=== PATIENT | male | born 1975 | race Caucasian/White ===

== ENCOUNTER → 2016-07-05 | Outpatient (CLI) | payer BC ==
[~2016-07-05] MED LIST: ALBUAER2 INH; AMOX875T PO; CYAN100020 PO; FISHOIL PO; Symbicort INH
--- NOTE | 2016-07-05 13:45 | DIAGNOSTIC IMAGING REPORT ---
TWO VIEW CHEST CLINICAL HISTORY: Asthma exacerbation. FINDINGS: PA and lateral chest radiographs are compared to study dated 09/30/2014. The cardiomediastinal silhouette is unremarkable. Findings suggest mild emphysema. Interstitial thickening is noted. No airspace consolidation or pleural effusion is identified. There is no pneumothorax. The bony thorax appears intact. IMPRESSION: Findings suggest mild emphysema. There is no airspace consolidation or pleural effusion. Electronically signed by: Felipe Choudhary M.D. 07/05/2016 1:44 PM Dictated Date/Time: 07/05/2016 1:41 PM
== END | disposition home or self-care (01) ==
LOC: C.RAD1850 13:34
PROVIDERS: ATTEND Internal Medicine Pulmonary Disease
DX: J45.901 Unspecified asthma with (acute) exacerbation (principal)

== ENCOUNTER 2017-08-25 21:07 | Observation (INO) | payer BC ==
[~2017-08-25] VITALS: Ht 177.8 cm; Wt 74.3 kg
[2017-08-25] MEDS ORDERED: ASPIRIN 324 MG CHEW PO STA (22:08)
[2017-08-25] MEDS ORDERED: NITROGLYCERIN 2% OINTMENT 30GM TUBE EXT ONE (22:15)
[2017-08-25] MEDS ORDERED: SODIUM CHLORIDE 0.9% 1000ML 1,000 ML IV ONE (22:15)
[2017-08-25 22:30] LABS: BASO % 0.3 %; BASO ABS # 0.02 K/uL (0-0.2); EOS % 5.4 %; EOS ABS # 0.31 K/uL (0-0.5); HEMATOCRIT 40.2 % (42-52); HEMOGLOBIN 14.3 g/dL (14.0-18.0); IG# 0.01 K/uL (0.00-0.02); LYMPH % 21.1 %; LYMPH ABS # 1.21 K/uL (1.2-3.4); MEAN CELL VOLUME 90.5 fL (80-100); MEAN CORPUSCULAR HEMOGLOBIN 32.2 pg (25-34); MEAN CORPUSCULAR HGB CONC 35.6 g/dl (32-36); MEAN PLATELET VOLUME 10.4 fL (7.4-10.4); MONO % 8.9 %; MONO ABS # 0.51 K/uL (0.11-0.59); NEUT % 64.1 %; NEUT ABS # 3.68 K/uL (1.4-6.5); PLATELET COUNT 216 K/uL (130-400); RED CELL DISTRIBUTION WIDTH CV 12.4 % (11.5-14.5); RED CELL DISTRIBUTION WIDTH SD 41.2 fL (36.4-46.3); WHITE BLOOD COUNT 5.74 K/uL (4.8-10.8)
[2017-08-25 22:36] LABS: PTT PATIENT 27.7 SECONDS (21.0-31.0)
[2017-08-25 22:42] LABS: ALBUMIN 3.9 gm/dl (3.4-5.0); CALCIUM 8.3 mg/dl (8.5-10.1); CREATININE 0.97 mg/dl (0.60-1.40); POTASSIUM 3.5 mmol/L (3.5-5.1)
[2017-08-25 22:52] LABS: CKMB 3.1 ng/ml (0.5-3.6); TOTAL PROTEIN 6.5 gm/dl (6.4-8.2)
[2017-08-25] MEDS ORDERED: MoRPHine SULFATE 4 MG/ML 1 ML CARP\\VIAL IV ONE (23:30)
[2017-08-25] MEDS ORDERED: SYMIN160 INH (23:40)
[2017-08-25] MEDS ORDERED: MULT-106 PO (23:41)
--- NOTE | 2017-08-25 23:44 | History and Physical ---
History & Physical Date & Time of Service: Aug 25, 2017 at 23:43 Chief Complaint: Numbness In Arm Primary Care Physician: Renato Park M.D. History of Present Illness Source: patient, hospital records 42 yo M w/ past medical history of Asthma, Non-hodgkins Lymphoma dx 2011, s/p chemotherapy last treatment 2011. He presents with Left sided chest pain radiating to arm neck. Symptoms occurred while doing yard work outside. 4-5/10 intensity Pain. He is no has previous similar symptoms. No aggravating factors. He also reports SOB, palpitation. No diaphoresis, nausea, fevers chills, abdominal pain, diarrhea. Reported symptoms to father and was driven to ED. NO similar previous symptoms. NO known injury. He denies wheezing sob, asthma related symptoms . NO history of HLD, HTN, Diabetes. His father had an ND at age 36. Past Medical/Surgical History Medical Problems: (1) Asthma (2) Asthma exacerbation (3) Asthmatic bronchitis (4) Follicular lymphoma (5) Pneumonia Family History Noncontributory Social History Smoking Status: Current Every Day Smoker Smokeless Tobacco Use: No Alcohol Use: none Drug Use: none Marital Status: Occupational Status: employed Immunizations History of Influenza Vaccine: No History of Tetanus Vaccine?: Yes History of Pneumococcal: No History of Hepatitis B Vaccine: No Allergies Coded Allergies: BEE STING (Verified Allergy, Severe, swelling/ hives, 08/25/17) Home Medications Scheduled Albuterol (Ventolin), 2 PUFFS INH QID Cyanocobalamin (Vitamin B12), 1 TAB PO DAILY Fish Oil ([place]-3), 1 CAP PO DAILY Multiple Vitamins W/ Minerals (One Daily Mens), 1 TAB PO DAILY Scheduled PRN Budesonide/Formoterol Fumarate (Symbicort 160/4.5 Inhaler ), 2 PUFFS INH BID PRN for Shortness of Breath Review of Systems Constitutional: No fever, No sweats, No weakness Respiratory: + shortness of breath, No cough, No sputum, No wheezing Cardiovascular: + chest pain, No edema, No palpitations Abdomen: No pain, No nausea, No vomiting, No diarrhea Genitourinary - Male: No hematuria, No dysuria, No urinary frequency Neurologic: + numbness/tingling (Left UE numbness), No weakness Integumentary: No rash, No itch Physical Exam Vital Signs Date Time Temp Pulse Resp B/P (MAP) Pulse Ox O2 Delivery O2 Flow Rate FiO2 08/25/17 23:35 84 18 157/92 92 Room Air 08/25/17 23:06 66 12 154/100 95 Room Air 08/25/17 22:26 77 20 150/101 99 Room Air 08/25/17 22:19 Room Air 08/25/17 21:53 78 08/25/17 21:18 36.5 79 18 174/100 100 Room Air GENERAL: alert, well appearing, well nourished, no distress, non-toxic EYE EXAM: normal conjunctiva, PERRL and EOM's grossly intact OROPHARYNX: no exudate, no erythema, lips, buccal mucosa, and tongue normal and mucous membranes are moist NECK: supple, no nuchal rigidity, no adenopathy, non-tender LUNGS: Clear to auscultation. Normal chest wall mechanics HEART: no murmurs, S1 normal and S2 normal +Chest wall tenderness near site of pain ABDOMEN: abdomen soft, non-tender, normo-active bowel sounds, no masses, no rebound or guarding. BACK: Back is symmetrical on inspection and there is no deformity, SKIN: no rashes and no bruising UPPER EXTREMITIES: upper extremities are grossly normal. LOWER EXTREMITIES: No pitting edema. NEURO EXAM: Normal sensorium, cranial nerves II-XII grossly intact, normal speech, no gross weakness of arms, no gross weakness of legs. Diagnostics Laboratory Results Results Past 24 Hours Test 08/25/17 22:10 08/25/17 22:17 08/25/17 22:30 Range/Units White Blood Count 5.74 4.8-10.8 K/uL Red Blood Count 4.44 4.7-6.1 M/uL Hemoglobin 14.3 14.0-18.0 g/dL Hematocrit 40.2 42-52 % Mean Corpuscular Volume 90.5 80-100 fL Mean Corpuscular Hemoglobin 32.2 25-34 pg Mean Corpuscular Hemoglobin Concent 35.6 32-36 g/dl Platelet Count 216 130-400 K/uL Mean Platelet Volume 10.4 7.4-10.4 fL Neutrophils (%) (Auto) 64.1 % Lymphocytes (%) (Auto) 21.1 % Monocytes (%) (Auto) 8.9 % Eosinophils (%) (Auto) 5.4 % Basophils (%) (Auto) 0.3 % Neutrophils # (Auto) 3.68 1.4-6.5 K/uL Lymphocytes # (Auto) 1.21 1.2-3.4 K/uL Monocytes # (Auto) 0.51 0.11-0.59 K/uL Eosinophils # (Auto) 0.31 0-0.5 K/uL Basophils # (Auto) 0.02 0-0.2 K/uL RDW Standard Deviation 41.2 36.4-46.3 fL RDW Coefficient of Variation 12.4 11.5-14.5 % Immature Granulocyte % (Auto) 0.2 % Immature Granulocyte # (Auto) 0.01 0.00-0.02 K/uL Prothrombin Time 10.7 9.0-12.0 SECONDS Prothromb Time International Ratio 1.0 0.9-1.1 Activated Partial Thromboplast Time 27.7 21.0-31.0 SECONDS Partial Thromboplastin Ratio 1.1 Sodium Level 140 136-145 mmol/L Potassium Level 3.5 3.5-5.1 mmol/L Chloride Level 106 98-107 mmol/L Carbon Dioxide Level 29 21-32 mmol/L Anion Gap 5.0 3-11 mmol/L Blood Urea Nitrogen 8 7-18 mg/dl Creatinine 0.97 0.60-1.40 mg/dl Est Creatinine Clear Calc Drug Dose 101.4 ml/min Estimated GFR () 110.4 Estimated GFR (Non- 95.2 BUN/Creatinine Ratio 8.4 10-20 Random Glucose 83 70-99 mg/dl Calcium Level 8.3 8.5-10.1 mg/dl Total Bilirubin 0.3 0.2-1 mg/dl Aspartate Amino Transf (AST/SGOT) 15 15-37 U/L Alanine Aminotransferase (ALT/SGPT) 29 12-78 U/L Alkaline Phosphatase 94 45-117 U/L Total Creatine Kinase 175 39-308 U/L Creatine Kinase MB 3.1 0.5-3.6 ng/ml Creatine Kinase MB Ratio 1.8 0-3.0 Total Protein 6.5 6.4-8.2 gm/dl Albumin 3.9 3.4-5.0 gm/dl Globulin 2.6 2.5-4.0 gm/dl Albumin/Globulin Ratio 1.5 0.9-2 Lipase 150 73-393 U/L Thyroid Stimulating Hormone (TSH) 2.530 0.300-4.500 uIu/ml Bedside D-Dimer 40 0-450 ng/mlFEU Bedside Troponin I < 0.030 0-0.045 ng/ml Urine Color YELLOW Urine Appearance CLEAR CLEAR Urine pH 8.0 4.5-7.5 Urine Specific [place] 1.003 1.000-1.030 Urine Protein NEG NEG Urine Glucose (UA) NEG NEG Urine Ketones NEG NEG Urine Occult Blood NEG NEG Urine Nitrite NEG NEG Urine Bilirubin NEG NEG Urine Urobilinogen NEG NEG Urine Leukocyte Esterase NEG NEG Normal EKG, No change from prior EKG Impression Assessment and Plan 42 yo M w/ past medical history of Asthma, Follicular Lymphoma dx 2011, s/p chemotherapy last treatment 2011, FHX [place] (age <50) presents with possible Left sided chest pain radiating to arm neck. Admit to Tele Chest pain , Fhx of [place] < age 50 - exertional chest pain radiating to neck LUE, with chest wall tenderness on exam - cardiac etiology considered given history and strong FHx, less likely given normal EKG, troponin - Serial troponin to r/o ACS - Given chest wall tenderness, MSK certainly possible etiology - pain control History of Lymphoma - Follicular Lymphoma - stable - s/p chemo 2011 Asthma -stable, no evidence of exacerbation - c/w home inhalers DVT PPX: Lovenox Code status: Full resus Attending addendum: I have physically seen this patient, have supervised the medical residents activities, and agree with the H&P unless as otherwise noted. Assessment and Plan: Precordial chest pain with radiation to left side of neck, shoulder and left upper extremity-- The patient will be admitted to telemetry for serial cardiac enzymes, serial EKG's, cardiac rhythm monitoring and a 2-D echocardiogram with Dopplers. If cardiac workup negative, will need a stress echo prior to discharge. Asthma-- Noncontributory to present symptoms. Continue current outpatient regimen of inhalers. Advanced Directives Existing Advance Directive: No Existing Living Will: No Existing Power of Echo Tech: No Resuscitation Status VTE Prophylaxis Will order VTE Prophylaxis: Yes Social Service Consult None Apply Note Total Time: Critical Care 30 - 74 minutes Resident Tracking Resident Involvement: Resident Care Provided Care Provided: Adult [facility] Medicine
[2017-08-26 00:20] VITALS: BP 146/88; PULSE 71; TEMP 36.7; Ht 177.8 cm; Wt 74.3 kg
[2017-08-26] MEDS ORDERED: ONDANSETRON INJ 2 MG/ML 2 ML VIAL IV PRN (00:30)
[2017-08-26] MEDS ORDERED: POLYETHYLENE (MIRALAX) 17 GM PACK PO PRN (00:30)
[2017-08-26] MEDS ORDERED: NITROGLYCERIN 0.4 MG SL PER TAB CHARGE SL PRN (00:30)
[2017-08-26] MEDS ORDERED: ALUMINUM/MAGNESIUM/SIMETH (MAALOX MAX) 30 ML UDC PO PRN (00:30)
[2017-08-26] MEDS ORDERED: MAGNESIUM HYDROXIDE SUSP 30 ML UDC PO PRN (00:30)
--- NOTE | 2017-08-26 00:55 | EMERGENCY ROOM VISIT NOTE ---
History First contact with patient: 21:57 Chief Complaint: OTHER COMPLAINT Stated Complaint: NUMBNESS IN ARM History of Present Illness The patient is a 42 year old male who presents to the Emergency Room with complaints of pain and numbness into his left arm, left side chest, and left- sided neck that began while doing yard work outside approximately 2 and half hours ago. The patient does not report distinct injury or trauma to explain his symptoms. His discomfort does not seem to improve or worsen with range of motion of the shoulder or arm. He has not had lightheadedness or dizziness. The patient has a very strong history of cardiac disease with his father suffering his first VA at the age of 36. The patient has a history of lymphoma in 2012 that was treated with chemotherapy successfully. The patient himself does not take any medication on a regular basis or report similar history. The patient has not had symptoms like this in the past. He describes the pain as a dull 4/10. Review of Systems More than 10 systems were reviewed and otherwise negative with the exception of history of present illness. Past Medical/Surgical History Medical Problems: (1) Asthma (2) Chest pain (3) Follicular lymphoma Family History Significant family history of cardiovascular disease Social History Smoking Status: Current Every Day Smoker Marital Status: Housing Status: unknown Occupation Status: employed Current/Historical Medications Scheduled Albuterol (Ventolin), 2 PUFFS INH QID Cyanocobalamin (Vitamin B12), 1 TAB PO DAILY Fish Oil ([place]-3), 1 CAP PO DAILY Multiple Vitamins W/ Minerals (One Daily Mens), 1 TAB PO DAILY Scheduled PRN Budesonide/Formoterol Fumarate (Symbicort 160/4.5 Inhaler ), 2 PUFFS INH BID PRN for Shortness of Breath Physical Exam Vital Signs Date Time Temp Pulse Resp B/P (MAP) Pulse Ox O2 Delivery O2 Flow Rate FiO2 08/25/17 23:35 84 18 157/92 92 Room Air 08/25/17 23:06 66 12 154/100 95 Room Air 08/25/17 22:26 77 20 150/101 99 Room Air 08/25/17 22:19 Room Air 08/25/17 21:53 78 08/25/17 21:18 36.5 79 18 174/100 100 Room Air Physical Exam VITALS: Vitals are noted on the nurse's note and reviewed by myself. Vital signs with elevated blood pressure. GENERAL: Well-developed, well-nourished, white male, who is in no acute distress and resting comfortably. Patient is cooperative with the examination. HEAD: Normocephalic atraumatic. NECK: Supple without nuchal rigidity. No lymphadenopathy. No thyromegaly. Cervical spine is nontender. HEART: Regular rate and rhythm without murmurs gallops or rubs. LUNGS: Clear to auscultation bilaterally without wheezes, rales or rhonchi. No retractions or accessory muscle use. ABDOMEN: Positive normal bowel sounds x 4. Soft, nontender, without masses or organomegaly. No guarding or rebound tenderness. MUSCULOSKELETAL: No muscle atrophy, erythema, or edema noted of the left shoulder or left upper extremity. The patient does have full sensation and range of motion throughout the left shoulder. Negative empty can. Road Crossing Guard strength 5/5. No rash noted. NEURO: Patient was alert and oriented to person place and time. CN II through XII grossly intact. Medical Decision & Procedures Laboratory Results 08/25/17 22:10 Red Blood Count 4.44, Mean Corpuscular Volume 90.5, Mean Corpuscular Hemoglobin 32.2, Mean Corpuscular Hemoglobin Concent 35.6, Mean Platelet Volume 10.4, Neutrophils (%) (Auto) 64.1, Lymphocytes (%) (Auto) 21.1, Monocytes (%) (Auto) 8.9, Eosinophils (%) (Auto) 5.4, Basophils (%) (Auto) 0.3, Neutrophils # (Auto) 3.68, Lymphocytes # (Auto) 1.21, Monocytes # (Auto) 0.51, Eosinophils # (Auto) 0.31, Basophils # (Auto) 0.02 08/25/17 22:10 Test 08/25/17 22:10 08/25/17 22:17 08/25/17 22:30 White Blood Count 5.74 K/uL (4.8-10.8) Red Blood Count 4.44 M/uL (4.7-6.1) Hemoglobin 14.3 g/dL (14.0-18.0) Hematocrit 40.2 % (42-52) Mean Corpuscular Volume 90.5 fL (80-100) Mean Corpuscular Hemoglobin 32.2 pg (25-34) Mean Corpuscular Hemoglobin Concent 35.6 g/dl (32-36) Platelet Count 216 K/uL (130-400) Mean Platelet Volume 10.4 fL (7.4-10.4) Neutrophils (%) (Auto) 64.1 % Lymphocytes (%) (Auto) 21.1 % Monocytes (%) (Auto) 8.9 % Eosinophils (%) (Auto) 5.4 % Basophils (%) (Auto) 0.3 % Neutrophils # (Auto) 3.68 K/uL (1.4-6.5) Lymphocytes # (Auto) 1.21 K/uL (1.2-3.4) Monocytes # (Auto) 0.51 K/uL (0.11-0.59) Eosinophils # (Auto) 0.31 K/uL (0-0.5) Basophils # (Auto) 0.02 K/uL (0-0.2) RDW Standard Deviation 41.2 fL (36.4-46.3) RDW Coefficient of Variation 12.4 % (11.5-14.5) Immature Granulocyte % (Auto) 0.2 % Immature Granulocyte # (Auto) 0.01 K/uL (0.00-0.02) Prothrombin Time 10.7 SECONDS (9.0-12.0) Prothromb Time International Ratio 1.0 (0.9-1.1) Activated Partial Thromboplast Time 27.7 SECONDS (21.0-31.0) Partial Thromboplastin Ratio 1.1 Anion Gap 5.0 mmol/L (3-11) Est Creatinine Clear Calc Drug Dose 101.4 ml/min Estimated GFR () 110.4 Estimated GFR (Non- 95.2 BUN/Creatinine Ratio 8.4 (10-20) Calcium Level 8.3 mg/dl (8.5-10.1) Total Bilirubin 0.3 mg/dl (0.2-1) Aspartate Amino Transf (AST/SGOT) 15 U/L (15-37) Alanine Aminotransferase (ALT/SGPT) 29 U/L (12-78) Alkaline Phosphatase 94 U/L (45-117) Total Creatine Kinase 175 U/L (39-308) Creatine Kinase MB 3.1 ng/ml (0.5-3.6) Creatine Kinase MB Ratio 1.8 (0-3.0) Total Protein 6.5 gm/dl (6.4-8.2) Albumin 3.9 gm/dl (3.4-5.0) Globulin 2.6 gm/dl (2.5-4.0) Albumin/Globulin Ratio 1.5 (0.9-2) Lipase 150 U/L (73-393) Thyroid Stimulating Hormone (TSH) 2.530 uIu/ml (0.300-4.500) Bedside D-Dimer 40 ng/mlFEU (0-450) Bedside Troponin I < 0.030 ng/ml (0-0.045) Urine Color YELLOW Urine Appearance CLEAR (CLEAR) Urine pH 8.0 (4.5-7.5) Urine Specific [place] 1.003 (1.000-1.030) Urine Protein NEG (NEG) Urine Glucose (UA) NEG (NEG) Urine Ketones NEG (NEG) Urine Occult Blood NEG (NEG) Urine Nitrite NEG (NEG) Urine Bilirubin NEG (NEG) Urine Urobilinogen NEG (NEG) Urine Leukocyte Esterase NEG (NEG) Medications Administered Medications (Trade) Dose Ordered Sig/Sofy Route Start Time Stop Time Status Last Admin Dose Admin Aspirin (Aspirin Chew) 324 mg NOW STAT PO 08/25/17 22:08 08/25/17 22:12 DC 08/25/17 22:25 324 MG Nitroglycerin (Nitroglycerin 2% Oint) 1 inch NOW ONCE EXT 08/25/17 22:15 08/25/17 22:16 DC 08/25/17 22:25 1 INCH Sodium Chloride 1,000 ml @ 999 mls/hr Q1H1M ONCE IV 08/25/17 22:15 08/25/17 23:15 DC 08/25/17 22:25 999 MLS/HR Morphine Sulfate (MoRPHine SULFATE INJ) 4 mg NOW ONCE IV 08/25/17 23:30 08/25/17 23:31 DC 08/25/17 23:31 4 MG ECG Per My Interpretation Change: Normal sinus rhythm @75 bpm Normal ECG When compared with ECG of 15-APR-2014 14:37, No significant change was found ED Course Physical exam and history were performed. Nursing notes, EMR, and Medication List were personally reviewed. Patient appears to have left-sided shoulder pain after working in his yard today. The patient is describing pain in the left side of his chest that does seem to radiate into his left side neck. The patient has a significant family history of cardiac disease with his father having his first VA at a very young age. The patient was given 324 mg aspirin and 1 inch of Nitropaste was placed. His EKG is as above and does not show acute ST elevation. He is placed on a library monitor. IV access was established and labs are obtained. X-rays were performed. The patient's blood work is as above and was reviewed. He does not have a significantly elevated white blood cell count, gross anemia, bandemia, or significant electrolyte imbalance. Lipase and transaminases are not diagnostic. Troponin and d-dimer 1 are both negative. X-rays do not appear to show acute process with official radiology read pending at this time. On reevaluation the patient did have some improvement of his discomfort after the aspirin and nitro. Because of this I did elect to give him 4 mg IV morphine as he did not have complete resolution. I have concern that the patient's symptoms may represent a cardiac etiology. Because of this I discussed the case with the on-call hospitalist, who agreed to evaluate the patient here in the ER. Please see their dictation for further patient course, plan, and disposition. The chart was completed utilizing [employer] Speech Voice Recognition Software. Grammatical errors, random word insertions, pronoun errors, and incomplete sentences are an occasional consequence of this system due to software limitations, ambient noise, and hardware issues. Any formal questions or concerns about the content, text, or information contained within the body of this dictation should be directly addressed to the provider for clarification. . Medical Decision Differential diagnosis includes, but is not limited to: Myocardial infarction, dysrhythmia, pericarditis, pneumothorax, aortic aneurysm/dissection, DVT/PE, anxiety, GERD, PUD, electrolyte imbalance, thyroid disorder, pneumonia, bronchitis, pancreatitis, and others Blood Pressure Screening Patient's blood pressure: Elevated blood pressure Impression Primary Impression: Left sided chest pain Additional Impression: Left shoulder pain Departure Information Referrals Renato Park M.D. (PCP) Patient Instructions [facility] Problem Qualifiers
[2017-08-26 01:05] VITALS: O2SAT 96
[2017-08-26] MEDS ORDERED: IV FLUIDS COMPLETED PRN (02:00)
[2017-08-26] MEDS: ACETAMINOPHEN 325 MG TAB PO PRN ×2 (02:03→06:39)
[2017-08-26 03:53] VITALS: BP 125/77; PULSE 72; TEMP 36.9; O2SAT 92
--- NOTE | 2017-08-26 06:47 | DIAGNOSTIC IMAGING REPORT ---
CHEST 2 VIEWS ROUTINE CLINICAL HISTORY: 42 years-old Male presenting with Left side chest pain. TECHNIQUE: PA and lateral views of the chest were obtained. COMPARISON: 02/25/2017. FINDINGS: Cardiomediastinal silhouette normal. Lungs and pleural spaces clear. Osseous structures normal. Upper abdomen normal. IMPRESSION: 1. No acute cardiopulmonary disease. Electronically signed by: Jose Hopkins M.D. 08/26/2017 6:46 AM Dictated Date/Time: 08/26/2017 6:44 AM
[2017-08-26 07:07] LABS: BASO % 0.6 %; BASO ABS # 0.03 K/uL (0-0.2); EOS % 7.7 %; EOS ABS # 0.42 K/uL (0-0.5); HEMATOCRIT 41.3 % (42-52); HEMOGLOBIN 14.4 g/dL (14.0-18.0); IG# 0.01 K/uL (0.00-0.02); LYMPH % 24.4 %; LYMPH ABS # 1.33 K/uL (1.2-3.4); MEAN CELL VOLUME 91.6 fL (80-100); MEAN CORPUSCULAR HEMOGLOBIN 31.9 pg (25-34); MEAN CORPUSCULAR HGB CONC 34.9 g/dl (32-36); MEAN PLATELET VOLUME 10.7 fL (7.4-10.4); MONO % 10.8 %; MONO ABS # 0.59 K/uL (0.11-0.59); NEUT % 56.3 %; NEUT ABS # 3.07 K/uL (1.4-6.5); PLATELET COUNT 219 K/uL (130-400); RED CELL DISTRIBUTION WIDTH CV 12.6 % (11.5-14.5); RED CELL DISTRIBUTION WIDTH SD 42.3 fL (36.4-46.3); WHITE BLOOD COUNT 5.45 K/uL (4.8-10.8)
--- NOTE | 2017-08-26 07:35 | DIAGNOSTIC IMAGING REPORT ---
L SHOULDER MIN 2 VIEWS ROUTINE CLINICAL HISTORY: 42 years-old Male presenting with Left side chest/shoulder pain, history of lymphoma. TECHNIQUE: Internal rotation, external rotation, Grashey views of the left shoulder were obtained. COMPARISON: None. FINDINGS: Acromioclavicular and glenohumeral joints congruent. No acute fracture or malalignment. No advanced degenerative change. No radiographic soft tissue abnormality. IMPRESSION: No acute osseous injury. Electronically signed by: Jose Hopkins M.D. 08/26/2017 7:33 AM Dictated Date/Time: 08/26/2017 7:32 AM
[2017-08-26 07:40] VITALS: BP 129/68; PULSE 84; TEMP 36.6; O2SAT 95
[2017-08-26 07:41] LABS: HEMOGLOBIN A1C 5.3 % (4.5-5.6)
[2017-08-26 07:45] LABS: BLOOD UREA NITROGEN 7 mg/dl (7-18); CALCIUM 8.1 mg/dl (8.5-10.1); CARBON DIOXIDE 27 mmol/L (21-32); CREATININE 0.86 mg/dl (0.60-1.40); GLUCOSE 87 mg/dl (70-99); POTASSIUM 3.7 mmol/L (3.5-5.1); SODIUM 142 mmol/L (136-145)
[2017-08-26 07:49] LABS: CHOLESTEROL 128 mg/dl (0-200); LDL CHOLESTEROL CALCULATED 61 mg/dl
[2017-08-26] MEDS ORDERED: ASPIRIN 81 MG ECTAB PO SCH (09:00)
[2017-08-26] MEDS ORDERED: ENOXAPARIN 40 MG/0.4 ML SYR SC SCH (09:00)
[2017-08-26] MEDS ORDERED: BUDESONIDE/FORMOTEROL FUMARATE 160/4.5 60 PUFFS/INHALER INH SCH (10:30)
--- NOTE | 2017-08-26 12:28 | Discharge Summary ---
Discharge Summary Date of Service August 26, 2017. Discharge Summary Admission Date: August 26, 2017 at 00:43 Discharge Disposition: Home Principal Diagnosis: muscular chest pain Problems/Secondary Diagnoses: asthma hx of lymphoma last chemo 2011 smokes Immunizations: Have You Had Influenza Vaccine: No History of Tetanus Vaccine?: Yes History of Pneumococcal: No History of Hepatitis B Vaccine: No Procedures: CHEST 2 VIEWS ROUTINE CLINICAL HISTORY: 42 years-old Male presenting with Left side chest pain. TECHNIQUE: PA and lateral views of the chest were obtained. COMPARISON: 02/25/2017. FINDINGS: Cardiomediastinal silhouette normal. Lungs and pleural spaces clear. Osseous structures normal. Upper abdomen normal. IMPRESSION: 1. No acute cardiopulmonary disease. L SHOULDER MIN 2 VIEWS ROUTINE CLINICAL HISTORY: 42 years-old Male presenting with Left side chest/shoulder pain, history of lymphoma. TECHNIQUE: Internal rotation, external rotation, Grashey views of the left shoulder were obtained. COMPARISON: None. FINDINGS: Acromioclavicular and glenohumeral joints congruent. No acute fracture or malalignment. No advanced degenerative change. No radiographic soft tissue abnormality. IMPRESSION: No acute osseous injury. Consultations: none Medication Reconciliation Continued Medications: Albuterol (Ventolin) Inh 2 PUFFS INH QID for 5 Days, INHALER Budesonide/Formoterol Fumarate (Symbicort 160/4.5 Inhaler ) Aero 2 PUFFS INH BID PRN for Shortness of Breath, INHALER Cyanocobalamin (Vitamin B12) 1,000 Mcg Tab 1 TAB PO DAILY Fish Oil ([place]-3) Oil 1 CAP PO DAILY, OIL Multiple Vitamins W/ Minerals (One Daily Mens) 1 Tab Tab 1 TAB PO DAILY Discharge Exam L sided scapular TTP Review of Systems: Constitutional: No fever Respiratory: + cough, No shortness of breath (improved) Cardiovascular: No chest pain (improved) Abdomen: No pain, No nausea, No vomiting Genitourinary - Male: No dysuria Neurologic: + numbness/tingling (L hand) Physical Exam: General Appearance: no apparent distress Eyes: normal inspection Neck: supple, no adenopathy Respiratory/Chest: lungs clear, normal breath sounds Cardiovascular: regular rate, rhythm, no murmur Abdomen / GI: normal bowel sounds, non tender, soft Extremities: + pertinent finding (negative L hand phalen and tinnel sign) Neurologic/Psychiatric: corporate compliance officer II-XII nml as tested, no motor/sensory deficits , alert, oriented x 3 Skin: warm/dry Hospital Course 42 yoM with hx of asthma, follicular lymphoma s/p last chemotherapy in 2011, and FHX of [place] (father - age <50) presented with Left sided chest pain radiating to L arm and L side of neck. Associated with sob. Negative CXR, EKG and cardiac enzymes. Negative stress echo. Likely muscular chest pain given yard work prior to start of pain and scapular/upper chest TTP. Chest pain likely MSK; Fhx of [place] < age 50 (negative cardiac work up) - exertional chest pain radiating to neck LUE, with chest wall and scapular tenderness on exam - CXR neg - cardiac etiology considered - normal EKG, serial troponins; d-dimer 40 - Stress echo ruled out unstable angina - normal at 13.5 mets and peak HR of 90 % of predicted maximum; No EKG changes; no exercised-induced CP; EF 55-60%; nl LV and RV systolic function without valvular pathology - Lipid panel: trig 50, total cholesterol 128, LDL 61; HDL 57 - LFT and lipase wnl - HgbA1c - 5.3 - Received aspirin 324mg; nitro paste and 1L NS bolus in the ED - pain control - tylenol 650mg Q4H PRN; received morphine 4mg IV in the ED - encouraged to stop smoking to decrease risk of vascular disease History of Lymphoma s/p chemo in 2012 - Follicular Lymphoma - stable Asthma -stable, no evidence of exacerbation -Continued home inhalers - Symbicort and Albuterol on discharge DVT PPX: Lovenox Code status: Full resus Resident Physician Supervision Note: I interviewed and examined the patient. Discussed with Dr. Murray and agree with findings and plan as documented in the note. Any exceptions or clarifications are listed here: None Documented By: Cheo Matamoros feeling better ready for home vitals noted nad breathing unlabored stress negative muscular chest pain - stable for home, negative cardiac w/u tobacco abuse - counselled earnestly on cessation and discussed very real risks for overall health if continues Total Time Spent: Greater than 30 minutes This includes examination of the patient, discharge planning, medication reconciliation, and communication with other providers. Discharge Instructions Please refer to the electronic Patient Visit Report (Discharge Instructions) for additional information. Additional Copies To Renato Park M.D.
[2017-08-26] MEDS ORDERED: ALBUTEROL HFA 8 GM INHALER INH SCH (13:00)
--- NOTE | 2017-08-26 13:49 | Discharge Instructions ---
Discharge Instructions Date of Service August 26, 2017. Admission Reason for Admission: Chest Pain Discharge Discharge Diagnosis / Problem: muscular chest pain Discharge Goals Goal(s): Diagnostic testing Activity Recommendations Activity Limitations: resume your previous activity . Instructions / Follow-Up Instructions / Follow-Up chest pain -your chest pain appears to have been muscle strain of your upper chest wall/ shoulder; with your EKGs and cardiac enzymes being negative, that effectively rules out this being a heart attack. your stress test being negative is extremely reassuring that this was not a heart attack "waiting to happen" (ie angina). with such a negative cardiac workup, and with your symptoms fitting well with muscular shoulder/chest strain patterns, it's safe to go back to your usual activity smoking -while this current workup was negative, with your family history, it is absolutely critical that you do everything you can to stop smoking. generally we see people get sick with vascular disease (heart attacks and strokes) much younger when they smoke, in addition to the obvious problems (increase risk of lung disease and many many types of cancers). for now, try to quit over the next few weeks and see how you do. if you are struggling with quitting, then in a few weeks talk to Dr Park about medications/assistance we can provide to help you quit. Current Hospital Diet Patient's current hospital diet: Regular Diet Discharge Diet Recommended Diet: Regular Diet Pending Studies Studies pending at discharge: no Laboratory Results Hemoglobin A1c Test 08/26/17 06:33 Range/Units Estimated Average Glucose 105 mg/dl Hemoglobin A1c 5.3 4.5-5.6 % Lipid Panel Test 08/26/17 06:33 Range/Units Triglycerides Level 50 0-150 mg/dl Cholesterol Level 128 0-200 mg/dl HDL Cholesterol 57 mg/dl Cholesterol/HDL Ratio 2.2 LDL Cholesterol, Calculated 61 mg/dl Medical Emergencies . Who to Call and When: Medical Emergencies: If at any time you feel your situation is an emergency, please call 911 immediately. . Non-Emergent Contact Non-Emergency issues call your: Primary Care Provider . . "Provider Documentation" section prepared by Cheo Matamoros. .
[2017-08-26 13:55] VITALS: BP 129/68; PULSE 84; TEMP 36.6; O2SAT 95
--- NOTE | 2017-08-26 14:11 | EXERCISE STRESS ECHO ---
*NOTICE TO RECEIVING DEMOCRAT AGENCY This information is strictly Confidential and protected under [place] law. [place] law prohibits you from making any further disclosure of this information unless further disclosure is expressly permitted by the written consent of the person to whom it pertains or is authorized by law. A general authorization for the release of medical or other information is not sufficient for this purpose. Hospital accepts no responsibility if the information is made available to any other person, INCLUDING THE PATIENT. Interpretation Summary * Name: LUL GALLAGHER JR Study Date: 08/26/2017 11:14 AM BP: 130/80 mmHg * Patient Location: 2\S\S238\S\1 HR: 55 * : 1975 (M/d/yyyy) Gender: Male Height: 70 in * Age: 42 yrs Ethnicity: [place] Weight: 171 lb * Ordering Physician: Kamlesh Leyva * Referring Physician: Self, Referred * Performed By: Kellee Hicks [facility] * * Reason For Study: CHEST PAIN * BSA: 2.0 m2 * -- Conclusions -- * 1. Normal stress echocardiogram at 13.5 METS and a peak heart rate of 90% predicted maximum. * 2. No exercise-induced chest pain. * 3. No EKG changes. * 4. Baseline echocardiogram notes normal left ventricular systolic function without valvular pathology. Procedure Details * ECHOEX, CPT #[id number] * ECHO COLOR FLOW, CPT #[id number] * ECHO DOPPLER, CPT #[id number] Left Ventricle * The left ventricle is normal in size. * There is normal left ventricular wall thickness. * Left ventricular systolic function is normal. * Ejection Fraction = 55-60%. * Resting wall motion: Normal. Stress wall motion: Appropriate increase in Left ventricular systolic function and decrease in cavity size. No stress induced segmental wall motion abnormalities. Right Ventricle * The right ventricle is normal size. * The right ventricular systolic function is normal as assessed by tricuspid annular plane systolic excursion (TAPSE) (normal >1.5 cm). Atria * The left atrial size is normal. * Right atrial size is normal. * No ASD detected; PFO is not assessed. Mitral Valve * The mitral valve anatomy is normal. * There is no mitral valve stenosis. * There is trace mitral regurgitation. Tricuspid Valve * The tricuspid valve anatomy is normal. * There is no tricuspid stenosis. * Significant tricuspid regurgitation is absent. Aortic Valve * The aortic valve is normal in structure and function. * No hemodynamically significant valvular aortic stenosis. * No aortic regurgitation is present. Pulmonic Valve * The pulmonary valve is not well seen, but the Doppler examination is normal without significant regurgitation or stenosis. Great Vessels * The aortic root is normal size. * The pulmonary artery is not well visualized, but is probably normal size. Pericardium * There is no pericardial effusion. Stress Parameters * Normal baseline electrocardiogram. * Stress ECG: No ST changes. No arrhythmias. * The stress portion of this study was personally supervised by the undersigned interpreting physician. * Rest heart rate was '55' BPM. * Rest blood pressure was '130/80' * Maximum heart rate achieved was 160 bpm. * Maximum heart rate was 90 % of maximum age-predicted heart rate. * Maximum blood pressure was '160/80' * Total exercise time was '11:00' * Maximum exercise MET level achieved was '13.50' METS * Maximum treadmill speed was '4.20' miles per hour. * Maximum treadmill elevation was '16.00'% grade. MMode 2D Measurements and Calculations IVSd 1.5 cm IVSs 1.8 cm LVIDd 5.3 cm LVIDs 3.5 cm LVPWd 1.4 cm LVPWs 1.5 cm IVS/LVPW 1.0 FS 33.0 % EDV(Teich) 132.6 ml ESV(Teich) 51.5 ml EF(Teich) 61.2 % EDV(cubed) 145.0 ml ESV(cubed) 43.5 ml EF(cubed) 70.0 % % IVS thick 21.2 % % LVPW thick 10.0 % LV mass(C)d 327.5 grams LV mass(C)dI 167.7 grams/m\S\2 LV mass(C)s 231.8 grams LV mass(C)sI 118.7 grams/m\S\2 SV(Teich) 81.1 ml SI(Teich) 41.5 ml/m\S\2 SV(cubed) 101.4 ml SI(cubed) 51.9 ml/m\S\2 Ao root diam 3.4 cm Ao root area 9.0 cm\S\2 ACS 2.1 cm LA dimension 2.8 cm LA/Ao 0.83 LVOT diam 2.0 cm LVOT area 3.3 cm\S\2 LVAd ap4 42.3 cm\S\2 LVLd ap4 9.2 cm EDV(MOD-sp4) 158.4 ml EDV(sp4-el) 165.2 ml LVAs ap4 30.7 cm\S\2 LVLs ap4 8.3 cm ESV(MOD-sp4) 93.3 ml ESV(sp4-el) 96.2 ml EF(MOD-sp4) 41.1 % EF(sp4-el) 41.8 % LVAd ap2 42.2 cm\S\2 LVLd ap2 8.8 cm EDV(MOD-sp2) 168.5 ml EDV(sp2-el) 171.4 ml LVAs ap2 26.8 cm\S\2 LVLs ap2 6.9 cm ESV(MOD-sp2) 85.6 ml ESV(sp2-el) 88.7 ml EF(MOD-sp2) 49.2 % EF(sp2-el) 48.3 % LVLd %diff -4.46 % EDV(MOD-bp) 164.5 ml LVLs %diff -21.08 % ESV(MOD-bp) 95.1 ml EF(MOD-bp) 42.2 % SV(MOD-sp4) 65.2 ml SI(MOD-sp4) 33.4 ml/m\S\2 SV(MOD-sp2) 82.9 ml SI(MOD-sp2) 42.4 ml/m\S\2 SV(MOD-bp) 69.4 ml SI(MOD-bp) 35.5 ml/m\S\2 SV(sp4-el) 69.0 ml SI(sp4-el) 35.4 ml/m\S\2 SV(sp2-el) 82.7 ml SI(sp2-el) 42.4 ml/m\S\2 Doppler Measurements and Calculations MV E max carlton 114.9 cm/sec MV A max carlton 66.9 cm/sec MV E/A 1.7 MV P1/2t max carlton 99.2 cm/sec MV P1/2t 150.5 msec MVA(P1/2t) 1.5 cm\S\2 MV dec slope 193.1 cm/sec\S\2 MV dec time 0.20 sec Ao V2 max 117.3 cm/sec Ao max PG 5.5 mmHg Ao max PG (full) 2.7 mmHg RAFAEL(V,A) 2.3 cm\S\2 RAFAEL(V,D) 2.3 cm\S\2 LV V1 max PG 2.8 mmHg LV V1 max 83.4 cm/sec PA V2 max 88.0 cm/sec PA max PG 3.1 mmHg
[2017-08-27] MEDS ORDERED: CEROVITE ADV FORMULA TAB PO SCH (09:00)
== END 2017-08-26 14:17 | disposition home or self-care (01) ==
LOC: C.EDB 21:08 → INTOOBSV 08-26 00:43 → C.2T 08-26 00:43 → ENRESERV 08-26 00:54
PROVIDERS: ADMIT Hospitalist; ATTEND Family Medicine
DX: R07.89 Other chest pain (principal); J45.909 Unspecified asthma, uncomplicated; Z85.72 Personal history of non-Hodgkin lymphomas; F17.200 Nicotine dependence, unspecified, uncomplicated; Z79.899 Other long term (current) drug therapy; Z82.49 Family history of ischemic heart disease and other diseases of the circulatory system; Z92.21 Personal history of antineoplastic chemotherapy; Z91.030 Bee allergy status

== ENCOUNTER → 2017-09-01 | Outpatient (CLI) | payer BC ==
[~2017-09-01] MED LIST changes: -AMOX875T PO; +MULT-106 PO; +SYMIN160 INH; -Symbicort INH
--- NOTE | 2017-09-01 11:02 | DIAGNOSTIC IMAGING REPORT ---
C-SPINE ROUTINE 4 OR 5 VIEWS CLINICAL HISTORY: 42 years-old Male presenting with M95.8,M67.912,M54.12, left winged scapula. TECHNIQUE: Lateral, bilateral oblique, frontal, and open-mouth odontoid views of the cervical spine were obtained. COMPARISON: PET/CT from 11/09/2014. FINDINGS: No anatomic variant is evident. Normal cervical lordosis. The C7 vertebral body is fully visualized. Vertebral bodies maintain normal height and alignment. Intervertebral disc heights preserved. Disc osteophyte complex noted at C6-7 with trace posterior bony spurring. This is similar to prior CT from 2014. No radiographic evidence of fracture or subluxation. No osseous neural foraminal narrowing. Lateral masses of C1 articulate normally with C2. Normal predental interval. No prevertebral soft tissue swelling. IMPRESSION: 1. Minimal focal degenerative change at C6-7, which has not progressed significantly since 2014. 2. No radiographic evidence of acute osseous injury. 3. No anatomic variant. Electronically signed by: Jose Hopkins M.D. 09/01/2017 11:00 AM Dictated Date/Time: 09/01/2017 10:58 AM
== END | disposition home or self-care (01) ==
LOC: C.RAD1850 10:21
PROVIDERS: ATTEND Family Medicine
DX: M54.12 Radiculopathy, cervical region (principal); M95.8 Other specified acquired deformities of musculoskeletal system; M67.912 Unspecified disorder of synovium and tendon, left shoulder; Z91.030 Bee allergy status

== ENCOUNTER 2017-12-15 22:17 | Emergency (ER) | payer BC ==
[~2017-12-15] VITALS: Ht 177.8 cm; Wt 74.6 kg
[2017-12-15 22:25] VITALS: BP 172/110; PULSE 99; TEMP 36.8; O2SAT 95; Ht 177.8 cm; Wt 74.6 kg
[2017-12-15] MEDS ORDERED: ELMCR EXT (22:38)
[2017-12-15] MEDS ORDERED: PERMETHRIN 5% CR 60 GM TUBE EXT ONE (22:45)
--- NOTE | 2017-12-16 04:01 | EMERGENCY ROOM VISIT NOTE ---
History First contact with patient: 22:24 Chief Complaint: SKIN PROBLEM Stated Complaint: BUGS History of Present Illness The patient is a 42 year old male who presents to the Emergency Room with complaints of irritation of his skin has been ongoing for the past 2-3 days. The patient states that his home is being treated for a mold problem in the basement. He is not having any respiratory symptoms, but when he got in the shower tonight he states that he washed off several small bugs from his skin. The patient showered less than 1 hour ago, and essentially came straight to the ER afterwards. He does not have any difficulty breathing, nausea, vomiting, or abdominal pains. He has small areas primarily on his legs and arms that are very itchy, that he has been scratching. The patient is not having any symptoms of the hands. He is not on any new medications or have known exposure to contact irritants. Patient rates his overall discomfort a 1/10. He is primarily concerned for bedbugs. Review of Systems More than 10 systems were reviewed and otherwise negative with the exception of history of present illness. Past Medical/Surgical History Medical Problems: (1) Asthma (2) Chest pain (3) Follicular lymphoma Family History No pertinent family history Social History Smoking Status: Current Every Day Smoker Drug Use: none Marital Status: Housing Status: unknown Occupation Status: employed Current/Historical Medications Scheduled Albuterol (Ventolin), 2 PUFFS INH QID Cyanocobalamin (Vitamin B12), 1 TAB PO DAILY Fish Oil ([place]-3), 1 CAP PO DAILY Multiple Vitamins W/ Minerals (One Daily Mens), 1 TAB PO DAILY Permethrin 5% (Elimite 5%), 0 EXT UD Scheduled PRN Budesonide/Formoterol Fumarate (Symbicort 160/4.5 Inhaler ), 2 PUFFS INH BID PRN for Shortness of Breath Physical Exam Vital Signs Date Time Temp Pulse Resp B/P (MAP) Pulse Ox O2 Delivery O2 Flow Rate FiO2 12/15/17 22:25 36.8 99 18 172/110 95 Room Air Physical Exam VITALS: Vitals are noted on the nurse's note and reviewed by myself. Vital signs stable. GENERAL: Well-developed, well-nourished, white male, who is in no acute distress and resting comfortably. Patient is cooperative with the examination. HEAD: Normocephalic atraumatic. No obvious findings throughout the scalp or hair HEART: Regular rate and rhythm without murmurs gallops or rubs. LUNGS: Clear to auscultation bilaterally without wheezes, rales or rhonchi. No retractions or accessory muscle use. MUSCULOSKELETAL: Multiple excoriated areas are appreciated on examination. These are best appreciated along the lower extremities. There are a few small raised areas without active bleeding or noted insect. No burrows are appreciated. Medical Decision & Procedures Medications Administered Medications (Trade) Dose Ordered Sig/Sofy Route Start Time Stop Time Status Last Admin Dose Admin Permethrin (Elimite 5% Crm) 1 appln NOW ONCE EXT 12/15/17 22:45 12/15/17 22:46 DC 12/15/17 22:48 1 APPLN ED Course Physical exam and history were performed. Nursing notes, EMR, and Medication List were personally reviewed. Patient appears to have nonspecific rash that is pruritic on his arms and legs. The patient primary concern is for bug bites as he reportedly washed off an unknown insect from his skin while in the shower. The patient is without obvious allergic reaction symptoms, and certainly could have bedbugs or similar process. The patient will be given permethrin cream as well as a prescription for the same. He is to follow-up with his primary care physician in the next few days. I did recommend doing his laundry and consider treating the home for insects. The patient was invited back to the ER with any new, worsening, or concerning symptoms. The chart was completed utilizing [employer] Speech Voice Recognition Software. Grammatical errors, random word insertions, pronoun errors, and incomplete sentences are an occasional consequence of this system due to software limitations, ambient noise, and hardware issues. Any formal questions or concerns about the content, text, or information contained within the body of this dictation should be directly addressed to the provider for clarification. . Medical Decision Differential diagnosis: Etiologies such as contact dermatitis, viral exanthem, urticaria, allergic reaction, Rapp-Eugene syndrome, toxic epidermal necrolysis, erythema multiforme, cellulitis, scabies, HSV, varicella, zoster, eczema, staph scalded skin syndrome, fungal infection, as well as others were entertained. Impression Primary Impression: Rash and nonspecific skin eruption Departure Information Dispostion Home / Self-Care Condition GOOD Prescriptions Permethrin 5% (Elimite 5%) 180 Appln/60 Gm Cr 0 EXT UD, #1 TUBE 1 Refill APPLY HEAD TO FOOT - LEAVE ON 8-14 HR - WASH OFF Prov: Shelton Parsons, DARCY 12/15/17 Forms HOME CARE DOCUMENTATION FORM, IMPORTANT VISIT INFORMATION Patient Instructions My [facility] Additional Instructions You were seen and evaluated today on an emergency basis only. This is not a substitute for, or an effort to provide, complete comprehensive medical care. It is not possible to recognize and treat all injuries or illnesses in a single emergency department visit. For this reason it is recommended that you followup with your primary care physician for ongoing care and evaluation. Permethrin Topical: Cream 5%: Thoroughly massage cream (30 g for average adult) from head to soles of feet; leave on for 8 to 14 hours before removing (shower or bath). You may repeat this in 14 days. You are welcome to return to the emergency department anytime with new, worsening, or concerning symptoms.
== END 2017-12-15 22:49 | disposition home or self-care (01) ==
LOC: C.EDB 22:19 → C.EDC 22:49
DX: R21 Rash and other nonspecific skin eruption (principal); J45.909 Unspecified asthma, uncomplicated; Z79.899 Other long term (current) drug therapy; Z85.72 Personal history of non-Hodgkin lymphomas; F17.200 Nicotine dependence, unspecified, uncomplicated